=== PATIENT | male | born 1955 | race Caucasian/White ===

== ENCOUNTER 2025-03-23 10:09 | Outpatient (REF) | payer MEDICARE, MEDICAID, SELFPAY ==
[2025-03-23 10:43] LABS: MANUAL DIFF FLAG NO
--- OUTSIDE RECORDS SUMMARY | 2025-03-23 10:45 | XMS_ITS | Referral Summary ---
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 2 Active ferrous sulfate 325 mg (65 mg iron) EC tablet Take 1 tablet (325 mg total) by mouth once a day. 2 Active rosuvastatin (CRESTOR) 40 mg tablet Take 1 tablet (40 mg total) by mouth nightly. 30 tablet 2 2 Active melatonin 3 mg tablet Take 6 mg by mouth nightly. Active pantoprazole DR (PROTONIX) 40 mg tablet Take 1 tablet (40 mg total) by mouth once a day. 30 tablet 3 Active finasteride (PROSCAR) 5 mg tablet Take 1 tablet (5 mg total) by mouth once a day. 30 tablet 3 Active tamsulosin (FLOMAX) 0.4 mg capsule Take 2 capsules (0.8 mg total) by mouth once a day. 30 capsule 3 Active senna (SENOKOT) 8.6 mg tablet Take 2 tablets (17.2 mg total) by mouth daily as needed for constipation. 4 Active traZODone (DESYREL) 50 mg tablet Take 1 tablet (50 mg total) by mouth nightly. 30 tablet 2 4 Active cholecalciferol (VITAMIN D3) 1,000 unit tablet Take 1,000 Units by mouth once a day. Active cyanocobalamin (vitamin B-12) 1,000 mcg tablet Take 1,000 mcg by mouth once a day. Active hydrALAZINE (APRESOLINE) 50 mg tablet Take 50 mg by mouth every 8 hours. Hold for SBP<100 Active lidocaine (LIDODERM) 5% patch Apply 1 patch topically to the affected area once a day. Remove and discard patch within 12 hours or as directed. Apply to chest. Active methocarbamoL (ROBAXIN) 500 mg tablet Take 500 mg by mouth 4 times a day. Active multivitamin with minerals tablet Take 1 tablet by mouth once a day. Active carboxymethylce llulose sodium 0.5 % drops Instill 1 drop into both eyes 3 times a day. Active acetaminophen (TYLENOL) 325 mg tablet Take 650 mg by mouth every 6 hours as needed for pain or fever (not to exceed 3 grams in 24 hours). Active valsartan (DIOVAN) 160 mg tablet Take 160 mg by mouth once a day. Active docusate sodium (COLACE) 100 mg capsule Take 100 mg by mouth 2 times a day. Active metoprolol tartrate (LOPRESSOR) 25 mg tablet Take 0.5 tablets (12.5 mg total) by mouth every 12 hours. 4 Active Active Problems Problem Noted Date Diagnosed Date Sepsis 12/11/2023 Assessment & Plan (12/12/2023 12:14 PM EDT): SIRS Criteria Patient met the following SIRS Criteria: Tachycardia >90 and Temp > 38.3 degrees celsius Sepsis Criteria Sepsis was present on admission. Source of infection is Urinary Tract Infection. Blood cultures were drawn. Initial lactic acid was drawn and value was less than 2 so no repeat was required. Patient was ordered the following Antibiotics: Ceftriaxone Patient received 1 L IV fluid bolus. He did not receive 30 mL/kg of IV fluids due to stable blood pressure, normal lactic acid, and risk of volume overload due to cardiomyopathy. Also see acute cystitis Assessment & Plan (12/11/2023 6:54 AM EDT): SIRS Criteria Patient met the following SIRS Criteria: Tachycardia >90 and Temp > 38.3 degrees celsius Sepsis Criteria Sepsis was present on admission. Source of infection is Urinary Tract Infection. Blood cultures were drawn. Initial lactic acid was drawn and value was less than 2 so no repeat was required. Patient was ordered the following Antibiotics: Ceftriaxone Patient received 1 L IV fluid bolus. He did not receive 30 mL/kg of IV fluids due to stable blood pressure, normal lactic acid, and risk of volume overload due to cardiomyopathy. Also see acute cystitis Hyperkalemia 12/11/2023 Assessment & Plan (12/13/2023 11:48 AM EDT): Likely due to acute kidney injury in combo with valsartan and spironolactone. Resolved. - Resume spironolactone today and valsartan tomorrow - Monitor BMP Assessment & Plan (12/11/2023 6:55 AM EDT): Mild. Likely due to acute kidney injury and losartan and spironolactone. -Hold home losartan and spironolactone -Monitor BMP Acute cystitis without hematuria 12/11/2023 Assessment & Plan (12/13/2023 11:49 AM EDT): Patient presents with fevers, nausea/vomiting x 1 day. No dysuria, abdominal pain, or flank pain. He tested negative for COVID-19, influenza A/B and RSV. Chest x-ray without evidence of pneumonia. Urinalysis consistent with UTI. He received ceftriaxone in the ED. Last urine culture in 08/2023 grew Klebsiella pneumoniae sensitive to ceftriaxone. - Continue ceftriaxone 1 g IV daily - Urine culture growing Klebsiella - follow up sensitivity - Blood culture NGTD - Acetaminophen as needed for pain/fever Assessment & Plan (12/11/2023 7:04 AM EDT): Patient presents with fevers, nausea/vomiting x 1 day. No dysuria, abdominal pain, or flank pain. He tested negative for COVID-19, influenza A/B and RSV. Chest x-ray without evidence of pneumonia. Urinalysis consistent with UTI. He received ceftriaxone in the ED. Last urine culture in 08/2023 grew Klebsiella pneumoniae sensitive to ceftriaxone. - Continue ceftriaxone 1 g IV daily - Follow blood cultures, urine culture - Acetaminophen as needed for pain/fever GERD (gastroesophageal reflux disease) Assessment & Plan (12/24/2023 11:02 AM EDT): Cont home Protonix Assessment & Plan (12/12/2023 12:14 PM EDT): Continue home pantoprazole 40 mg p.o. daily Assessment & Plan (12/11/2023 7:00 AM EDT): Continue home pantoprazole 40 mg p.o. daily Assessment & Plan (09/11/2023 11:43 AM EST): Preadmission Protonix restarted. Paroxysmal atrial fibrillation 09/11/2023 Assessment & Plan (12/26/2023 5:49 PM EDT): Follows with [facility] cardiology.Per most recent note: Patient developed Afib postoperatively and started on amiodarone. He converted to sinus rhythm. He did develop junctional bradycardia and was seen by EP. Now off of amiodarone per cardiac surgery. Recommend 30 time in the ED-day event monitor to eval for recurrent atrial fibrillation. [id number] or 3. He is on Coumadin per cardiac surgery. If he does not have any recurrence of atrial fibrillation we can consider discontinuing anticoagulation after 3 months - please see s/p MVR below for details regarding plan for AC - Cont home Lopressor - Monitor on telemetry for recurrence of Afib Assessment & Plan (12/12/2023 12:14 PM EDT): Patient has a history of postsurgical atrial fibrillation. He is rate controlled. Patient anticoagulated on warfarin. - Daily INR; warfarin dosing based on INR - Continue home metoprolol tartrate 12.5 mg p.o. twice daily Assessment & Plan (12/11/2023 6:53 AM EDT): Patient has a history of postsurgical atrial fibrillation. He is rate controlled. Patient anticoagulated on warfarin. - Daily INR; warfarin dosing based on INR - Continue home metoprolol tartrate 12.5 mg p.o. twice daily Assessment & Plan (09/16/2023 10:46 PM EST): Pt developed rate controlled atrial fibrillation on POD# 3. Now in NSR. Continue Lopressor 12.5 mg Q 12 hours and Amiodarone taper. Sinus bradycardia 09/09/2023 Assessment & Plan (09/16/2023 10:45 PM EST): Morning of day 1 episode of asystolic pauses and junctional escape while checking underlying rhythm. EP consulted -no intervention needed. Patient developed rate controlled AF on day 3. Continue Lopressor 12.5 mg every 12 hours. Amiodarone decreased to 400 mg po q12hr. Mitral regurgitation, myxomatous 09/08/2023 S/P MVR (mitral valve repair) 09/08/2023 Assessment & Plan (12/26/2023 5:41 PM EDT): Patient with prior history of severe MR and resultant HFrEF and pulmonary hypertension now status post complex repair of mitral valve with placement of a 32 mm physio 2 ring and [address] Dr. Zhang on 09/08/23. Postoperative course was complicated by atrial fibrillation. TTE obtained on 12/20 showed normal BiV systolic function with EF 64% normal functioning mitral valve status post mitral annular ring insertion. Per facility patient is currently maintained on coumadin and ASA (spoke to nurse on 12/25). Per last discharge paperqwork on 12/14 the patient was on Lovenox with brigde to warfarin. Per CT surgery consultation: 1. He has completed the recommended 3 month anticoagulation for Mitral repair surgery. However, it needs to be determined if he has remained in SR. Since admission it appears he has been in SR here on monitor. According to the cardiology note from yesterday, there was a 30 day MCOT to assess for afib recurrence and they are in process of obtain it. 2. Follow recommendations made by cardiology regarding anticoagulation, remain off anticoagulation for now given active bleeding, obtain heart monitor result and or if re-occurrence of atrial fibrillation occurs re-assess anticoagulation needs. Per Cardiology consultation 12/20: -given his significant bleeding risk if anticoagulation is resumed, would recommend remaining off coumadin for now - results of 30-day monitor will be read in the next few days at which point we will know if he has had recurrence of afib/what his afib burden is - if recurrent afib is noted on monitor, his outpatient densitometrist should help guide AC decision along with his urologist Hematuria is improving. Will discuss option of Eliquis to be started in a few days. Will discuss this with cardiology and family as it will be for A fib only, since there is no more indication for any AC from the Mitral valve standpoint. Assessment & Plan (12/12/2023 12:14 PM EDT): S/p mechanical mitral valve repair in 08/2023. Surgical incision appears to be healing well without evidence of infection. Patient on warfarin. INR 2.5 in the ED. Goal INR between 2.5-3.5 for mechanical mitral valve - Daily INR; warfarin dosing based on INR Assessment & Plan (12/11/2023 7:02 AM EDT): S/p mechanical mitral valve repair in 08/2023. Surgical incision appears to be healing well without evidence of infection. Patient on warfarin. INR 2.5 in the ED. Goal INR between 2.5-3.5 4 mechanical mitral valve - Daily INR; warfarin dosing based on INR Assessment & Plan (09/12/2023 2:40 PM EST): S/P complex repair of mitral valve with placement of a 32 mm physio 2 ring and 45 mm LILIAN clip: - ASA -statin. -Metoprolol 12.5mg by mouth twice daily. - Coumadin 0.5 mg by mouth this afternoon for systemic anticoagulation. -Amiodarone load for new onset atrial flutter with controlled ventricular rate, patient has been evaluated by EP Service, appreciate input. -Furosemide 40mg po twice daily to optimize volume status. -Valsartan decrease to 40mg po daily. - Advance diet as tolerated -Right chest tube to waterseal, obtain CXR four hours later to assess for evidence of pneumothorax. -May transfer to floor when bed available. Assessment & Plan (09/10/2023 3:05 PM EST): S/p MVr #32 ring and LAAC by Dr. Zhang 09/08/23 -- Aspirin pod #1 -- Coumadin started on POD # 1 BPH (benign prostatic hyperplasia) 09/07/2023 Assessment & Plan (12/24/2023 11:02 AM EDT): Cont home Flomax/Finasteride Assessment & Plan (09/16/2023 10:46 PM EST): Continue Proscar 5 mg daily, Flomax 0.8 mg daily post-op. Resumed POD #1 Severe malnutrition 04/29/2023 Assessment & Plan (04/29/2023 12:36 PM EDT): Patient seen by nutrition and noted to have severe malnutrition - nutrition following - Ensure high protein BID (Breakfast, Dinner - Vanilla) Hyponatremia 04/27/2023 Assessment & Plan (12/12/2023 12:13 PM EDT): Mild. Likely due to volume depletion in the setting of vomiting. Patient received a 1 L IV fluid bolus in the ED. - Monitor BMP Assessment & Plan (12/11/2023 6:54 AM EDT): Mild. Likely due to volume depletion in the setting of vomiting. Patient received a 1 L IV fluid bolus in the ED. - Monitor BMP Assessment & Plan (05/01/2023 2:47 PM EDT): Patient with asymptomatic mild hypoNa this admit. Likely 2/2 diuresis. Diuretics held and this improved - diuretics as per other section - continue 2 L fluid restriction per day - monitor Na. Activity of daily living alteration 04/24/2023 Impaired mobility 04/17/2023 Assessment & Plan (04/17/2023 4:07 PM EDT): Evaluated by Physical Therapy and cleared for home with rolling walker. Bone lesion 04/15/2023 Assessment & Plan (04/28/2023 5:17 PM EDT): Heterogeneous appearance of the spine with several areas of focal lucency concerning for malignancy, particularly Multiple Myeloma found incidentally on pre- operative CT Chest 04/14. Pt denied bone pain. Soldier to lambda ratio within normal limits. SPEP without monoclonal protein found. IgG elevated and IgA elevated. Patient refused MRI spine on 04/18. Per hematology consultation on 04/23 low suspicion for multiple myeloma. Findings could also be from bacteremia. - Appreciate hematology consultation: Low suspicion for multiple myeloma - Outpatient PET/CT - PSA wnl Combined systolic and diastolic congestive heart failure 04/10/2023 Pulmonary hypertension 04/10/2023 Elevated hemidiaphragm 04/10/2023 HTN (hypertension) 09/17/2022 Assessment & Plan (12/26/2023 5:46 PM EDT): Hx resistant HTN, on Hydral 50 3 times a day, Lopressor 25mg BID, Spironolactone 50mg every day, Valsartan 160, and Torsemide 20. - Hydralazine was on hold. Restart at 10 mg p.o. q8h (home dose 50 mg q8h) - Restart low dose metoprolol 12.5 mg BID given bradycardia - Hold home Richard/Torsemide ISO blood loss - Hold Valsartan given mild ANNE, resume if needed for HTN Assessment & Plan (12/13/2023 11:47 AM EDT): BP stable. - Resume home hydralazine 50 mg 3 times daily today and valsartan 160 mg daily tomorrow - Continue home metoprolol tartrate 25 mg every 12 hours Assessment & Plan (12/11/2023 6:57 AM EDT): BP stable. -Hold home hydralazine 50 mg 3 times daily, valsartan 80 mg p.o. daily due to sepsis -Continue home metoprolol tartrate 25 mg every 12 hours Assessment & Plan (09/16/2023 10:45 PM EST): Pre-op management includes: Toprol XL 50 mg daily, Valsartan 80 mg daily. -Postop Valsartan 80mg daily, titrating Lopressor as tolerated, current dose 12.5 mg every 12 hrs. Hydralazine prn Assessment & Plan (05/01/2023 2:47 PM EDT): Home Medication: Lisinopril 40 mg PO daily. Held in the setting of stable BP. Transition to valsartan hand 40 mg daily. Also on metoprolol, spironolactone, torsemide for his heart failure. - meds per CHF section Assessment & Plan (09/20/2022 3:31 PM EST): Home Meds: Coreg 6.25 BID, lisinopril 20 mg daily, spironolactone 25 mg daily Patient presenting with severe hypertension with systolic BP 220s which resolved with use of his home meds: Carvedilol 6.25 mg, lisinopril 20 mg, spironolactone 25 mg. Stated that he did not take his medications one day before presenting to his cardiolgist's office, however dispense reports last prescription filled in 05/2022 for 30 days. Denied any headache, vision change, LH/dizziness, chest pain. Trop peaked to 0.21 ->0.26 likely demand ischemia. Less likely ACS but patient still undergoing LHC 09/18 for MR/HOLLI workup. Patient with history of MR and HFrEF, can refer to these sections for further details and management. BP 187/84 this on 09/19 in the AM, patient asymptomatic, given his home Coreg and lisinopril 40 mg prior to cath procedure. Patient noted to be bradycardic in the 40s-50s and BP in the 150s- 160s systolic on 09/20. Given AM dose of Coreg, however discontinued and started amlodipine 5 mg daily in the afternoon. Also in light of LHC findings, given IV Lasix 40 mg x1, although appears euvolemic on exam. Will monitor patient on new medication adjustment in the hopes of lowering his BP adequately before discharge. -Continue lisinopril to 40 mg daily -STOPPED home Coreg iso bradycardia -Started amlodipine 5 mg daily 09/20 -Continue home spirolactone -Continue to monitor blood pressures throughout hospital stay Mixed hyperlipidemia 05/30/2022 Assessment & Plan (09/07/2023 10:17 PM EST): Continue Crestor 40 mg daily post-op Assessment & Plan (04/22/2023 11:41 AM EDT): Chronic issue. Continue home rosuvastatin 40 mg nightly Assessment & Plan (09/20/2022 3:31 PM EST): Home Med: Crestor 40 mg Patient with a Hx of hyperlipidemia. Takes Crestor 40 mg at home. Medication continued throughout hospital stay. - Continue home Crestor Leg swelling 05/11/2022 Acute on chronic systolic (congestive) heart latisha lure 05/10/2022 Assessment & Plan (05/11/2022 10:18 AM EDT): Patient has history of HFrEF with EF 44%, global hypokinesis more in the inferior and lateral melgar, severe eccentric mitral regurgitation, estimated PASP 53 mmHg. He presents today with worsening lower extremity edema. Found to have elevated JVD, minimal basal crackles and 2+ bilateral pedal edema. Troponin 0.25 and BNP 3980. No chest pain or anginal equivalents. No baseline BNP. He appears slightly volume overloaded on exam with no O2 requirement. No chest x-ray findings of pulmonary edema. He has been noncompliant with all his medications. -cardiology formally consulted to follow -Start Lasix 20 mg IV twice a day -coreg 6.25 mg bid -lisinopril 10 mg daily -Continue aspirin 81 mg daily -Continue Crestor 40 mg nightly - Monitor intake and output - 2 L fluid restriction - Obtain 2D echo (pending read) -Telemetry monitoring -Keep potassium more than 4 and magnesium more than 2 Chronic ulcer of left lower extremity 05/10/2022 Assessment & Plan (05/11/2022 10:19 AM EDT): Patient has an ulcer over the left lower extremity secondary to lorenzo. Does not appear to be infected. No fever or WBC count elevation. Received ceftriaxone 1 g IV in the ED. -Plastic surgery consult pending clinical course -Monitor off antibiotics, does not appear acutely infected and no fever or leukocytosis Anemia 08/27/2021 Assessment & Plan (12/26/2023 4:47 PM EDT): Patient baseline hemoglobin around 9 presented with hemoglobin 8.6 that subsequently dropped to the 7s and then to 6.8 in setting of gross hematuria. S/P transfusion of 1 unit of PRBCs. Most likely acute blood loss anemia related to hematuria, no other signs or symptoms of bleeding. - CBC daily unless any further concern for hemodynamic instabiilty - Transfuse for Hgb <7 - Maintain active type and screen Assessment & Plan (09/07/2023 10:19 PM EST): Continue FeSO4 325 mg daily post-op Assessment & Plan (04/27/2023 6:34 PM EDT): Initially no signs of bleeding. Labs show mild microcytic anemia with low iron saturation of 10%, given iron repletion - outpatient follow up for colon cancer screening and further workup Assessment & Plan (08/31/2021 12:23 PM EST): Patient had slowly downtrending of hemoglobin since 08/20 (OR debridement), with significant bleeding in bandages. Baseline hemoglobin 10-11. Decreased to 6.9 on 08/26, patient received 1 unit packed RBCs, with appropriate response. MCV 81, borderline microcytic. Iron studies were obtained to further work-up the cause of anemia, and showed ferritin within normal limits, decreased iron concentration (23) decreased transferrin (161), and decreased percent saturation (11), consistent with iron deficiency anemia. -Monitor CBC -Pt receiving 325 mg supplemental Fe daily Severe mitral regurgitation 08/18/2021 Assessment & Plan (09/09/2023 2:24 PM EST): Mitral valve prolapse with moderate mitral regurgitation. Now status post mitral valve repair. Assessment & Plan (04/29/2023 12:37 PM EDT): Patient initiated work-up with the valve team in September 2022 however was a no- show during follow-up appointment in October. Patient was transferred from [place] to [facility] for consideration of MV repair after presenting for resp failure 2/2 CHF likely due to his MR. During his course at [facility], his social situation and lack of follow up posed a barrier to be a candidate for mitral valve repair; therefore, consideration for mitral clip. Dental extraction completed here. Hospital course c/b bacteremia which will delay his surgery. Team had confirmed with cardiothoracic surgery on 04/23 that the patient will have outpatient follow-up for his mitral valve. Plan Structural heart team following Outpatient follow-up for ongoing work-up: Dr. Zhang on 06/10 @ 11:30 AM. Treatment of bacteremia Management of CHF as below Assessment & Plan (09/20/2022 3:28 PM EST): Patient with known severe MR as seen on last TTE Apr 2022, now presenting with symptoms of dyspnea on exertion. + Holosystolic murmur best heard at the apex anteriorly on physical examination. Seen in clinic today and recommended for possible transcatheter [id number] mitral repair but required optimization of HTN and volume status prior to procedure. Patient amendable to getting testing/procedures for this procedure while in the hospital. TTE completed on 09/18 (results per HFrEF section). Patient to underwent HARDY and LHC for further eval on 09/19 (results below). Found to have elevated pressures bilaterally including severe pulmonary HTN (refer to full report for numeric values). Given 40 mg IV Lasix on 09/20, however patient noted to be euvolemic on physical exam. Refer to HFpEF and HTN sections. 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 LAD without any significant disease. LVEDP 27 mmhg Right heart cath showed severe pulmonary hypertension. Recommendations: Return to [facility] after completion of post-procedural care. Further management as per the Cardiology team. Evidence-based optimal medical therapy. Aggressive cardiovascular risk factor modification. High-intensity statin. -Panorex xray for dental eval completed -HARDY completed -LHC completed -Plan for outpatient eval for possible mitral valve repair in the future -Refer to HFrEF and HTN sections for further management Assessment & Plan (09/03/2021 11:41 AM EST): Mitral regurgitation severe: meets criteria for MV replacement given EF less than 60% and PASP 53 mm Hg (>50). Outpatient replacement. Minimize preload with lasix. Cardiac Surgery consulted for eval of MV repair/replacement; recommending no intervention while patient is being treated for LE cellulitis. Once resolved, patient may follow up with Cardiology and pursue outpatient MV replacement vs repair. - Additional management as per HF section Cardiology follow up 09/06/21 with Harjeet Howard MD Encounter for assessment of decision-making [facility] 08/18/2021 Assessment & Plan (05/11/2022 10:18 AM EDT): Patient was evaluated by psych for decision-making capacity during his prior hospitalization. He was deemed to have capacity by psych and the primary team thereafter. He seems to have poor understanding of his medical conditions and has been noncompliant with all medical therapy and follow-up. If he does require cardiac cath and stenting he is unlikely to be compliant with DAPT. -monitor mental status, oriented x3 but poor insight/medical understanding Assessment & Plan (08/26/2021 8:00 PM EST): Cognitive eval: evaluated by psych 08/18: pt found to have capacity; however if he were to want leave AMA then Psych requesting to be called as he does not have very clear insight. OT yesterday, scored 15 out of 30 on SLUMS assessment. Patient has been living independently in the community and has been caring for his significant other (Mary Vasquez, currently admitted to [facility] ) who has Hungtinons. Dr Cristobal spoke to his significant other's physician at [facility], it is doubtful that she will ever be able to live in the community again. Dr Cristobal spoke also to patient's healthcare proxy, Iraida Farias, who communicated that Federico is able to work, he is independent. Iraida did communicate that patient's significant other has been in very ill health and that the house was in disarray when she went in to check on Mary, very dirty and cluttered. Iraida communicated that she is not able to provide significant assistance for Federico and Mary because she also cares for her significant other with severe physical limitations. -Patient has been cooperative with care since OR debridement on 08/20, verbalizes understanding of treatment goals, risks, and benefits. Continues to demonstrate capacity per primary team. Dilated cardiomyopathy 08/15/2021 Assessment & Plan (12/13/2023 11:46 AM EDT): Compensated. - Resume home spironolactone and torsemide - Daily weights and I's and O's - Monitor BMP, magnesium Assessment & Plan (12/11/2023 6:59 AM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 with adjacent accessory splenule. PANCREAS: Unremarkable for technique. ADRENAL GLANDS: Unremarkable without nodule bilaterally. KIDNEYS: 4 mm calculus in right upper pole calyx unchanged in location.Punctate nonobstructing calculus in the left lower pole. Exophytic 3.0 cmleft upper pole exophytic lesion which is isodense to the adjacent renalparenchyma, subtle peripheral calcification, present since 2020, withhyperdense contents on prior chest CT consistent with a hemorrhagiccyst.. No hydronephrosis. Nonspecific perinephric fluid. VESSELS: Normal caliber aorta, with infrarenal abdominal aortic ectasia,contact the aorto iliac and branch calcification. Stable bilateral commoniliac artery ectasia.. GI TRACT: Small hiatal hernia. Normal course and caliber. Normal appendix.No abnormal distention of bowel wall thickening. Few scattered descendingand sigmoid colon diverticula without acute diverticulitis.. PELVIC ORGANS: Concentric bladder wall thickening with intraluminal Foleycatheter and intraluminal air. Asymmetric density dependently, slightlyhyperdense and slightly greater than right UVJ. Subtle perivesical fatstranding. Dense calcification in a normal sized prostate gland. Symmetricseminal vesicles and spotty calcification the vas deferens PERITONEUM-RETROPERITONEUM: No ascites or pneumoperitoneum. LYMPHADENOPATHY: Scattered normal size lymph nodes, some withcalcification. SOFT TISSUES: Bilateral gynecomastia. . Lobulated subcutaneous nodulesin the intra-abdominal wall, that on the left with air, most probablyrelated to subcutaneous injections. Small umbilical hernia containing fatand unobstructed its base BONES: Healed lower right anterior rib fractures. Thoracolumbaradditional. Normal vertebral body height and alignment. Bridgingosteophytes at the right posterior and left anterior SI joints. Moderateright hip osteoarthritis. IMPRESSION: 1. Limited noncontrast CT. 2.. Nonobstructing bilateral renal calculi. No ureterolithiasis orhydronephrosis. 3. Hyperdensity dependently in the urinary bladder consistent with bloodproducts, asymmetrically greater on the right. Adjacent groundglassattenuation the perivesical fat may reflect hemorrhagic cystitis. Pleasecorrelate clinically and with urinalysis [place] alert 4. Cirrhotic liver morphology without splenomegaly or ascites. 5. Additional details as above COMMUNICATION: Per written report A(n) [place] actionable finding has been communicated to the ordering orresponsible provider via the [employer] system on12/23/2023 11:42 AM. Receipt of this communication by the responsibleprovider will be documented in Meta Findings uponreceiving acknowledgement if applicable, Message ID [id number]. If this radiology report contains a blank impression section, it is anincomplete radiology report. Please contact the interpreting radiologistor applicable radiology division as soon as possible to obtain thecompleted interpretation. Workstation ID: [id number] Up-to-date CT equipment and radiation dose reduction techniques wereemployed. CTDIvol: 10.1 mGy. DLP: 460 mGy-cm. us Mayte VASQUEZ IMG CT PROCEDURES Final Resu lt * CT Chest without Contrast (04/14/2023 7:46 PM EDT) Anatomical Region Laterality Modality Body Computed Tomogra phy 04/14/2023 8:53 PM EDT Impressions 04/15/2023 9:03 AM EDT Impression: Moderate to severe atherosclerotic calcification of the aortic arch, descending aorta and aortic root. No significant calcification involving the ascending aorta. Heterogeneous appearance of the spine with several areas of focal lucency addition to permeative appearance of the right fourth posterior lateral rib with a healing rib fracture, possibly pathologic in nature. Malignancy and diffuse infiltrative marrow diseases could have a similar appearance, particularly multiple myeloma. Consider clinical workup and potentially an MRI of the spine for further characterization. A(n) [place] actionable finding has been communicated to the ordering or responsible provider via the [employer] system on 04/15/2023 9:00 AM. Receipt of this communication by the responsible provider will be documented in Meta Findings upon receiving acknowledgement if applicable, Message ID [id number]. If this radiology report contains a blank impression section, it is an incomplete radiology report. Please contact the interpreting radiologist or applicable radiology division as soon as possible to obtain the completed interpretation. Workstation ID: [id number] Up-to-date CT equipment and radiation dose reduction techniques were employed. CTDIvol: 32.5 mGy. DLP: 1047 mGy-cm. Narrative 04/15/2023 9:03 AM EDT Indication: Aortic atherosclerosis - Preop Cardiac Surgery - assess for Ascending Aorta Calcification, Comparison: None Dose: For radiation dose control at least one of the following techniques was used in this procedure (1) Automated exposure control (2) Adjustment of the mA and/or kV according to patient size (3) Use of iterative reconstruction technique. Findings: Neck and thoracic inlet: No abnormality. Mediastinum and large vessels: Aorta Moderate to severe aortic wall calcifications involving the aortic root aortic arch and descending aorta.. Pulmonary arteries Dilatation of the main pulmonary artery, measuring 34 mm. Esophagus Normal esophagus. Other mediastinal findings No other abnormal mediastinal findings are present. Heart: Cardiac size Moderate cardiomegaly. Coronary arteries Moderate coronary calcifications. Valves Moderate aortic valve calcifications. Pericardium No abnormality. Lymph nodes: Supraclavicular and axillary Normal sized lymph nodes, no enlarged lymph nodes. Mediastinal Normal sized lymph nodes, no enlarged lymph nodes. Hilar Unremarkable hilar contours. The absence of intravenous contrast limits the evaluation for adenopathy. Others None. Lung parenchyma: Respiratory motion artifact mildly limits evaluation. No suspicious pulmonary nodules. Airways: Mild thickening and irregularities of the airway melgar. Pleura: No abnormality. Upper abdomen: Hyperdense renal lesion measuring 2.5 cm likely a hemorrhagic cyst. No adrenal nodules. No focal abnormality in the liver. Small volume intra-abdominal ascites. Chest wall and bones: Multilevel degenerative change in the spine. Heterogeneous appearance of the spine with several focal areas of hypodensity scattered throughout. Permeative appearance of the right fourth posterior lateral rib with a healing rib fracture. Resulting Agency Comment [id number] Procedure Note Peg Dubon MD - 04/15/2023 Indication: Aortic atherosclerosis - Preop Cardiac Surgery - assess forAscending Aorta Calcification, Comparison: None Dose: For radiation dose control at least one of the following techniqueswas used in this procedure (1) Automated exposure control (2) Adjustmentof the mA and/or kV according to patient size (3) Use of iterativereconstruction technique. Findings: Neck and thoracic inlet: No abnormality. Mediastinum and large vessels: Aorta Moderate to severe aortic wall calcifications involving the aortic rootaortic arch and descending aorta.. Pulmonary arteries Dilatation of the main pulmonary artery, measuring 34 mm. Esophagus Normal esophagus. Other mediastinal findings No other abnormal mediastinal findings are present. Heart: Cardiac size Moderate cardiomegaly. Coronary arteries Moderate coronary calcifications. Valves Moderate aortic valve calcifications. Pericardium No abnormality. Lymph nodes: Supraclavicular and axillary Normal sized lymph nodes, no enlarged lymph nodes. Mediastinal Normal sized lymph nodes, no enlarged lymph nodes. Hilar Unremarkable hilar contours. The absence of intravenous contrast limitsthe evaluation for adenopathy. Others None. Lung parenchyma: Respiratory motion artifact mildly limits evaluation. No suspiciouspulmonary nodules. Airways: Mild thickening and irregularities of the airway melgar. Pleura: No abnormality. Upper abdomen: Hyperdense renal lesion measuring 2.5 cm likely a hemorrhagic cyst. Noadrenal nodules. No focal abnormality in the liver. Small volumeintra-abdominal ascites. Chest wall and bones: Multilevel degenerative change in the spine. Heterogeneous appearance ofthe spine with several focal areas of hypodensity scattered throughout.Permeative appearance of the right fourth posterior lateral rib with ahealing rib fracture. IMPRESSION: Impression: Moderate to severe atherosclerotic calcification of the aortic arch,descending aorta and aortic root. No significant calcification involvingthe ascending aorta. Heterogeneous appearance of the spine with several areas of focal lucencyaddition to permeative appearance of the right fourth posterior lateralrib with a healing rib fracture, possibly pathologic in nature.Malignancy and diffuse infiltrative marrow diseases could have a similarappearance, particularly multiple myeloma. Consider clinical workup andpotentially an MRI of the spine for further characterization. A(n) [place] actionable finding has been communicated to the ordering orresponsible provider via the [employer] system on04/15/2023 9:00 AM. Receipt of this communication by the responsibleprovider will be documented in [employer] uponreceiving acknowledgement if applicable, Message ID [id number]. If this radiology report contains a blank impression section, it is anincomplete radiology report. Please contact the interpreting radiologistor applicable radiology division as soon as possible to obtain thecompleted interpretation. Workstation ID: [id number] Up-to-date CT equipment and radiation dose reduction techniques wereemployed. CTDIvol: 32.5 mGy. DLP: 1047 mGy-cm. Alba VASQUEZ IMG CT PROCEDURES Final Resu lt * Hepatitis C Antibody w/Reflex to HCV RNA, Quantitative PCR (05/11/2022 5:38 AM EDT) Hepatitis C Antibody NON-REACT PRINCE NON-REACT PRINCE 05/12/2022 6:51 PM EDT [facility] Signal To Cut-Off 0.12 <1.00 05/12/2022 6:51 PM EDT [facility] Comment: HCV antibody was non-reactive. There is no laboratory evidence of HCV infection. In most cases, no further action is required. However, if recent HCV exposure is suspected, a test for HCV RNA (test code 04314) is suggested. For additional information please refer to http://education.Process Relations/faq/OHG47w2 (This link is being provided for informational/ educational purposes only.) Blood Structure of peripheral vein / Unknown Venipuncture / Unknown 05/11/2022 5:38 AM EDT 05/11/2022 6:07 AM EDT Narrative [facility] - 05/12/2022 6:51 PM EDT [facility] Received Date: Baldo Anderson MD LAB BLOOD ORDERABLES Fi nal Result [facility] [address], [place] [address], [place] [phone] [facility] [address], [place] [address], [place] [phone] from Last 3 Months or Most Recently Relevant to Health Maintenance Additional Health Concerns Infection Onset Date Last Indicated 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 04/18/2023 Insurance [facility] MEDICARE Advance Directives Documents on File Type Date Recorded 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 MOLST/POLST 12/25/2023 12:40 PM 3 MOLST/POLST 05/01/2023 12:12 PM Health Care Proxy 04/22/2023 3:21 PM Madina Reedavelinoleeann segovia Health Care Proxy 08/13/2021 8:43 AM * Full Code (Latest Code Status on File) Date Activated Date Inactivated Comments 12/24/2023 12:40 AM 12/27/2023 6:30 PM * Full Code Date Activated Date Inactivated Comments 12/11/2023 3:05 AM 12/15/2023 5:43 PM * Full Code Date Activated Date Inactivated Comments 09/08/2023 6:00 PM 09/18/2023 3:45 PM * Full Code Date Activated Date Inactivated Comments 04/11/2023 7:09 AM 05/01/2023 6:03 PM * Full Code Date Activated Date Inactivated Comments 04/06/2023 3:40 PM 04/11/2023 7:04 AM Healthcare Agents on File Name Relationship Healthcare Agent Relationshi p Communication Madina West [employer] Receiving Associate Health Care Agent Sachin West Brother Alternate Health Care Agent Care Teams 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
[2025-03-23 10:52] LABS: Hematocrit 35.9 % (42.0-52.0); Hemoglobin 12.7 g/dl (14.0-18.0); Imm Gran Abs Auto 0.01 X10*3/uL (0.00-0.03); Imm Gran Pct Auto 0.2 % (0.0-0.4); Lymphocytes Absolute Auto 1.7 X10*3/uL (1.2-4.9); Mean Corpuscular HGB Conc 35.4 g/dl (31.0-36.0); Mean Corpuscular Hemoglobin 30.2 pg (27.0-33.0); Mean Corpuscular Volume 85.5 fL (80.0-98.0); NRBC Abs Auto 0.000 X10*3/uL (0.0-0.012); NRBC Pct Auto 0.0 /100WBC (0.0-0.2); Platelet Count 187 X10*3/uL (160-400); Red Blood Count 4.20 X10*6/uL (4.60-5.80); White Blood Count 5.5 X10*3/uL (4.8-10.8)
[2025-03-23 11:19] LABS: Alanine Aminotransferase 19 U/L (0-40); Albumin Level 4.4 g/dL (3.5-5.0); Alkaline Phosphatase 51 U/L (39-117); Anion Gap 12 (12-20); Aspartate Amino Transferase 29 U/L (5-37); Blood Urea Nitrogen 18 mg/dL (9-16); Calcium 9.4 mg/dL (8.4-10.2); Carbon Dioxide 29 mmol/L (22-29); Chloride 102 mmol/L (96-108); Cholesterol 109 mg/dL (<200); Estimated Glomerular Filt Rate 57; HDL Cholesterol 42 mg/dL (>40); Potassium 3.6 mmol/L (3.3-5.1); Sodium 139 mmol/L (135-145); Total Protein 7.6 g/dL (6.5-8.0); Triglycerides 71 mg/dL (<150)
[2025-03-23 11:23] LABS: Ferritin 101 ng/mL (20-250)
[2025-03-23 11:57] LABS: Folate 10.6 ng/mL (> or = 4.0); Vitamin B12 694 pg/mL (200-900)
[2025-03-24 22:24] LABS: Prot Elec - Albumin 4.0 g/dL (3.8-4.8); Prot Elec - Alpha1 0.3 g/dL (0.2-0.3); Prot Elec - Alpha2 0.6 g/dL (0.5-0.9); Prot Elec - Beta 1 0.4 g/dL (0.4-0.6); Prot Elec - Beta 2 0.5 g/dL (0.2-0.5); Prot Elec - Gamma 1.5 g/dL (0.8-1.7); Prot Elec - Total Protein 7.4 g/dL (6.1-8.1)
[2025-03-26 16:28] LABS: TS Negative Control Passed; TS Panel A 2; TS Panel B 0; TS Positive Control Passed; TSpotTB Negative (Negative)
== END 2025-03-23 10:10 | disposition home or self-care (01) ==
LOC: HO.10HDL 10:09
PROVIDERS: Visit Provider Internal Medicine
DX: Z12.5 Encounter for screening for malignant neoplasm of prostate (principal); Z11.1 Encounter for screening for respiratory tuberculosis; C90.00 Multiple myeloma not having achieved remission; D64.9 Anemia, unspecified; E78.00 Pure hypercholesterolemia, unspecified; I10 Essential (primary) hypertension; N40.0 Benign prostatic hyperplasia without lower urinary tract symptoms; Z95.2 Presence of prosthetic heart valve
CPT/HCPCS: 36415; 80053; 80061; 82607; 82728; 82746; 84153; 84165; 85025; 86481

== ENCOUNTER → 2025-07-04 15:20 | Outpatient (BNV) | payer MEDICARE, MEDICAID, SELFPAY | PROVIDERS: PCP Internal Medicine; Referring Provider Internal Medicine; Visit Provider Internal Medicine Medical Oncology | DX: Z85.79 Personal history of other malignant neoplasms of lymphoid, hematopoietic and related tissues (principal) | CPT/HCPCS: 99204 ==